=== PATIENT | female | born 1950 | race Caucasian/White ===

== ENCOUNTER → 2016-10-04 | Day surgery (SDC) | payer MEDICARE, BC ==
[2016-10-02 13:11] VITALS: BMI 25.0
[~2016-10-04] MED LIST: GLYCOPYRROLATE 0.2 MG/ML 2 ML VIAL ONE; LACTATED RINGERS 1,000 ML IV SCH; LIDOCAINE 1% 20 ML VIAL (10MG/ML) FOR IV START INTRADERMA PRN; LIDOCAINE 1% INJ 10MG/ML (20 ML MDV) ONE; PROPOFOL 10 MG/ML 20 ML VIAL IV ONE
[2016-10-04 13:21] VITALS: TEMP 98.1
--- NOTE | 2016-10-04 13:41 | P.GSHP ---
History of Present Illness H&P Date: 10/04/16 Chief Complaint: GI bleed, GERD, diverticulitis This is a 58-year-old female who's had some issues with GI bleed. She has a history of GERD and diverticulitis. - Constitutional Constitutional: Reports as per HPI Past Medical History Past Medical History: Atrial Fibrillation, GERD/Reflux, Hyperlipidemia, Hypertension Additional Past Medical History / Comment(s): CHRONIC NECK PAIN History of Any Multi-Drug Resistant Organisms: None Reported Past Surgical History: Heart Catheterization With Stent, Hysterectomy Additional Past Surgical History / Comment(s): RIGHT LUNG BX-NEG. Past Anesthesia/Blood Transfusion Reactions: No Reported Reaction Date of Last Stent Placement:: 2008 Past Psychological History: No Psychological Hx Reported Smoking Status: Former smoker Past Alcohol Use History: Occasional Additional Past Alcohol Use History / Comment(s): STARTED SMOKING AT AGE 14 QUIT 2007 SMOKED 1PPD Past Drug Use History: None Reported - Past Family History Father Family Medical History: Cancer, Myocardial Infarction ([place]) Additional Family Medical History / Comment(s): COLON CA Mother Family Medical History: Myocardial Infarction ([place]) Medications and Allergies Home Medications Medication Instructions Recorded Confirmed Type Aspirin 81 mg PO DAILY 09/15/14 10/02/16 History Ferrous Sulfate [Feosol] 325 mg PO BID 09/15/14 10/02/16 History Metoprolol Tartrate [Lopressor] 25 mg PO BID 09/15/14 10/04/16 History Omeprazole [Omeprazole] 20 mg PO HS 09/15/14 10/04/16 History Diphenoxylate HCl/Atropine 1 tab PO DAILY 10/02/16 10/04/16 History [Lomotil] Estradiol 0.5 mg PO DAILY 10/02/16 10/04/16 History Rosuvastatin Calcium [Crestor] 10 mg PO DAILY 10/02/16 10/04/16 History Allergies Allergy/AdvReac Type Severity Reaction Status Date / Time No Known Allergies Allergy Verified 10/02/16 13:03 Surgical - Exam Vital Signs Temp Pulse Resp BP Pulse Ox 98.1 F 51 L 16 121/65 98 10/04/16 13:19 10/04/16 13:19 10/04/16 13:19 10/04/16 13:19 10/04/16 13:19 - General well developed, no distress - Eyes PERRL - ENT normal pinna - Neck no masses - Respiratory normal expansion - Cardiovascular Rhythm: regular - Abdomen Abdomen: soft, non tender Assessment and Plan Plan: History of GERD and diverticulitis and GI bleed We'll perform EGD and colonoscopy.
--- NOTE | 2016-10-04 14:06 | P.OP ---
Date of Procedure: 10/04/16 Preoperative Diagnosis: GERD GI bleed History of diverticulitis Postoperative Diagnosis: Antral gastritis No evidence of hiatal hernia Severe diverticulosis of sigmoid colon, incomplete colonoscopy Procedure(s) Performed: EGD Colonoscopy Anesthesia: MAC Surgeon: Gui Freed Pathology: other (Antrum) Condition: stable Disposition: PACU Description of Procedure: The patient's placed on the endoscopy table in the lateral position. She received IV sedation. The gastroscope some placed oropharynx and passed into the esophagus and into the stomach. Scope was then placed through the pylorus. The first and second portion of the duodenum appeared normal. Scope was then brought back and the antrum and this appeared mildly inflamed. A biopsies was performed. The scope was then retroflexed the remainder of the stomach appeared normal. The GE junction was at 40 cm. There is no evidence of a hiatal hernia. The distal esophagus appeared normal. The proximal esophagus appeared normal. Scope was withdrawn for patient. Next digital rectal exam was performed which revealed no abnormalities. The scope was then advanced into the rectum and then the sigmoid colon. There is extensive diverticular changes seen in the sigmoid colon. The colon was fixed and tortuous. The scope could not be advanced through the sigmoid colon. This with the scope was withdrawn. The rectum appeared normal. Scope was withdrawn for patient.
[2016-10-04 14:53] VITALS: RESP 18
[2016-10-04 15:05] VITALS: BP 124/69; PULSE 51
--- NOTE | 2016-10-04 16:32 | XR ---
EXAMINATION TYPE: XR KUB DATE OF EXAM: 10/04/2016 4:13 PM COMPARISON: NONE HISTORY: Failed colonoscopy TECHNIQUE: Single supine KUB image of the abdomen is obtained FINDINGS: Given the amount of the air within the large and small bowel barium enema will be attempted in the a. m. No convincing evidence for pneumoperitoneum. No unusual calcifications. The lung bases are clear. The osseous structures are intact. IMPRESSION: 1. Overall nonobstructive bowel gas pattern.
== END ==
LOC: ORWHC2ENDO 12:42
PROVIDERS: ATTEND Surgery
DX: K57.30 Diverticulosis of large intestine without perforation or abscess without bleeding (principal); K29.50 Unspecified chronic gastritis without bleeding; K21.9 Gastro-esophageal reflux disease without esophagitis; Q43.8 Other specified congenital malformations of intestine; I25.10 Atherosclerotic heart disease of native coronary artery without angina pectoris; I10 Essential (primary) hypertension; Z87.891 Personal history of nicotine dependence; E78.5 Hyperlipidemia, unspecified; Z95.5 Presence of coronary angioplasty implant and graft; Z79.82 Long term (current) use of aspirin; Z79.899 Other long term (current) drug therapy; Z79.890 Hormone replacement therapy
CPT/HCPCS: 88305; 88342; 74000; 43239; 45330; J2001; J2704; 45378

== ENCOUNTER → 2016-11-30 | Outpatient (CLI) | payer MEDICARE, BC ==
[2016-11-30 10:23] LABS: CH 28.8; CHCM 34.6; HDW 3.29; HGB 12.6 gm/dL (11.4-16.0); MCH 28.5 pg (25.0-35.0); MCV 83.8 fL (80.0-100.0); RBC 4.42 m/uL (3.80-5.40); RDW 14.2 % (11.5-15.5); WBC 4.6 k/uL (3.8-10.6)
[2016-11-30 10:28] LABS: Potassium 4.4 mmol/L (3.5-5.1)
== END | disposition home or self-care (01) ==
LOC: LABPAT 09:52
PROVIDERS: ATTEND Surgery
DX: Z01.812 Encounter for preprocedural laboratory examination (principal)
CPT/HCPCS: 80051; 85027

== ENCOUNTER 2016-12-07 07:45 | Inpatient (IN) | payer MEDICARE, BC ==
[~2016-12-07 07:45] MED LIST changes: +DEXAMETHASONE SOD PHOSPHATE 10 MG/ML 1 ML VIAL IV ONE; -GLYCOPYRROLATE 0.2 MG/ML 2 ML VIAL ONE; +HEPARIN SODIUM,PORCINE 5,000 UNIT/ML 1 ML VIAL SQ ONE; +HYDROmorphone 1 MG/ML 1 ML SYRINGE IVP PRN; -LIDOCAINE 1% 20 ML VIAL (10MG/ML) FOR IV START INTRADERMA PRN; -LIDOCAINE 1% INJ 10MG/ML (20 ML MDV) ONE; +MIDAZOLAM 2 MG/2 ML VIAL IV PRN; +ONDANSETRON 4 MG/2 ML VIAL IVP ONE; -PROPOFOL 10 MG/ML 20 ML VIAL IV ONE; +ceFAZolin 2 GM in SODIUM CHLORIDE 0.9% 100 ML IVPB ONE; +metroNIDAZOLE-NS PMX 500 MG in SALINE 1 100ML.BAG IVPB ONE
[2016-12-07] MEDS ORDERED: LIDOCAINE 1% 20 ML VIAL (10MG/ML) FOR IV START INTRADERMA ONE (08:54)
--- NOTE | 2016-12-07 10:32 | P.GSHP ---
History of Present Illness H&P Date: 12/07/16 Chief Complaint: Diverticulitis This 58-year-old female for from Dr. Guzman. Patient has history of diverticulitis. She presents today for low anterior section. Patient reversed surgery including colostomy. - Constitutional Constitutional: Reports as per HPI Past Medical History Past Medical History: Atrial Fibrillation, GERD/Reflux, Hyperlipidemia, Hypertension Additional Past Medical History / Comment(s): Diverticulitis,CHRONIC NECK PAIN History of Any Multi-Drug Resistant Organisms: None Reported Past Surgical History: Cholecystectomy, Heart Catheterization With Stent, Hysterectomy Additional Past Surgical History / Comment(s): RIGHT LUNG BX-NEG. Past Anesthesia/Blood Transfusion Reactions: No Reported Reaction Additional Past Anesthesia/Blood Transfusion Reaction / Comment(s): no problems with prior blood transfusion Date of Last Stent Placement:: 2008 Smoking Status: Former smoker - Past Family History Father Family Medical History: Cancer, Myocardial Infarction ([place]) Additional Family Medical History / Comment(s): COLON CA Mother Family Medical History: Myocardial Infarction ([place]) Medications and Allergies Home Medications Medication Instructions Recorded Confirmed Type Aspirin 81 mg PO DAILY 09/15/14 12/07/16 History Ferrous Sulfate [Feosol] 325 mg PO BID 09/15/14 12/07/16 History Metoprolol Tartrate [Lopressor] 25 mg PO BID 09/15/14 12/07/16 History Omeprazole [Omeprazole] 20 mg PO HS 09/15/14 12/07/16 History Diphenoxylate HCl/Atropine 1 tab PO DAILY PRN 10/02/16 12/07/16 History [Lomotil] Estradiol 0.5 mg PO QAM 10/02/16 12/07/16 History Rosuvastatin Calcium [Crestor] 10 mg PO DAILY 10/02/16 12/07/16 History Zolpidem Tartrate 5 mg PO HS PRN 11/29/16 12/07/16 History traMADol HCL [Ultram] 100 mg PO Q6HR PRN 11/29/16 12/07/16 History Allergies Allergy/AdvReac Type Severity Reaction Status Date / Time No Known Allergies Allergy Verified 12/07/16 08:18 Surgical - Exam Vital Signs Temp Pulse Resp BP Pulse Ox 98.1 F 56 L 16 105/64 98 12/07/16 08:11 12/07/16 08:11 12/07/16 08:11 12/07/16 08:11 12/07/16 08:11 - General well developed, no distress - Eyes PERRL - ENT normal pinna - Neck no masses - Respiratory normal expansion - Cardiovascular Rhythm: regular - Abdomen Left lower quadrant pain Abdomen: soft Results - Labs 12/07/16 08:30 Diabetes panel 12/07/16 Range/Units 08:30 Potassium 4.2 (3.5-5.1) mmol/L Pituitary panel 12/07/16 Range/Units 08:30 Potassium 4.2 (3.5-5.1) mmol/L Adrenal panel 12/07/16 Range/Units 08:30 Potassium 4.2 (3.5-5.1) mmol/L Assessment and Plan Plan: Diverticulitis. We'll perform a low anterior resection.
[2016-12-07] MEDS ORDERED: MIDAZOLAM 2 MG/2 ML VIAL ONE (11:06)
[2016-12-07] MEDS ORDERED: GLYCOPYRROLATE 0.2 MG/ML 2 ML VIAL ONE (11:06)
[2016-12-07] MEDS ORDERED: fentaNYL (PF) 50 MCG/ML 2 ML AMP ONE (11:06)
[2016-12-07] MEDS ORDERED: HYDROmorphone (PF) 1 MG/ML ONE (11:06)
[2016-12-07] MEDS ORDERED: SUCCINYLCHOLINE CHLORIDE 100 MG/5 ML SYR IV ONE (11:06)
[2016-12-07] MEDS ORDERED: PROPOFOL 10 MG/ML 20 ML VIAL IV ONE (11:06)
[2016-12-07] MEDS ORDERED: LIDOCAINE 1% INJ 10MG/ML (20 ML MDV) ONE (11:06)
[2016-12-07] MEDS ORDERED: ROCURONIUM BROMIDE 10 MG/ML 10 ML VIAL IV ONE (11:06)
[2016-12-07] MEDS ORDERED: NEOSTIGMINE 1 MG/ML 10 ML VIAL ONE (11:06)
[2016-12-07] MEDS ORDERED: LACTATED RINGERS 1,000 ML IV ONE ×2 (11:42)
[2016-12-07] MEDS ORDERED: NALOXONE 0.4 MG/ML 1 ML VIAL IV PRN (12:12)
[2016-12-07] MEDS ORDERED: HYDROmorphone 1 MG/ML 1 ML SYRINGE IVP PRN (12:25)
[2016-12-07] MEDS ORDERED: BENZOCAINE/MENTHOL LOZENG 1 EACH LOZENGE MUCOUS MEM PRN (12:25)
--- NOTE | 2016-12-07 12:32 | P.OP ---
Date of Procedure: 12/07/16 Preoperative Diagnosis: Diverticulitis Postoperative Diagnosis: Diverticulitis Procedure(s) Performed: Low anterior resection Implants: Anesthesia: ELLIOT Surgeon: Gui Freed Estimated Blood Loss (ml): 50 Pathology: other (Sigmoid colon) Condition: stable Disposition: PACU Indications for Procedure: Operative Findings: Description of Procedure: The patient's placed on the operating table in the supine. She received general anesthesia. She was then placed in dorsolithotomy. Her abdomen pressed prepped and draped usual sterile fashion. The abdomen was entered through a low midline incision. The sigmoid colon was examined.. The sigmoid colon appeared to be mildly inflamed and attached to the lateral pelvic wall. Using blunt and sharp dissection with cautery; was mobilized. The; was then transected proximally with the linear cutter stapler. Using the LigaSure device the mesentery was divided. The rectum was then transected with the contour stapler. Next the pursestring device applied to the proximal colon and then the 25 mm EEA anvil was placed in the colon and the pursestring was secured. The EEA stapler was then placed patient anus and then was positioned near the staple line. The stapler was opened and the spike was driven through the anterior colon wall and then the anvil was attached to the stapler and the stapler was then closed and then the stapler was fired. Stapler was withdrawn for patient. 2 intact tissue rings removed the stapler. The rectum was insufflated with air via a rigid sigmoidoscope. There is no extravasation of air at the anastomosis. The abdomen was irrigated. There is no bleeding seen. The fascia was closed with looped #1 PDS suture. The skin was closed with sakina. She top she will was sent to recovery in stable condition.
[2016-12-07] MEDS: BUPIVACAINE (PF) 0.5% 31.3 ML, HYDROMORPHONE (PF) 5 MG in SODIUM CHLORIDE 0.9% 218 ML EPIDURAL PRN (13:04)
[2016-12-07] MEDS: D5-0.45% NACL WITH KCL 20MEQ/L 1,000 ML IV SCH ×2 (15:19→20:46)
[2016-12-07 15:40] VITALS: BMI 23.5
[2016-12-07 15:48] LABS: Basophils % (A) 0 %; CHCM 33.9; Eosinophils % (A) 0 %; HCT 35.3 % (34.0-46.0); HDW 3.52; HGB 12.2 gm/dL (11.4-16.0); Luc # (Auto) 0.06; Luc % (Auto) 1; Lymphocytes # (A) 0.6 k/uL (1.0-4.8); Lymphocytes % (A) 10 %; MCH 28.8 pg (25.0-35.0); MCHC 34.7 g/dL (31.0-37.0); Mean Platelet Volume 7.1; Monocytes # (A) 0.1 k/uL (0-1.0); Monocytes % (A) 2 %; Neutrophils # (A) 5.4 k/uL (1.3-7.7); Neutrophils % (A) 87 %; Poikilocytosis Slight; RBC 4.25 m/uL (3.80-5.40); RDW 14.2 % (11.5-15.5); WBC 6.3 k/uL (3.8-10.6); WBC (Perox) 6.77
[2016-12-07 15:54] LABS: Anion Gap 12 mmol/L; Blood Urea Nitrogen 13 mg/dL (7-17); Calcium 9.7 mg/dL (8.4-10.2); Carbon Dioxide 24 mmol/L (22-30); Chloride 107 mmol/L (98-107); Glucose 132 mg/dL (74-99); Non-African American GFR(MDRD) 58 (>60 ml/min/1.73 sqM); Potassium 4.3 mmol/L (3.5-5.1); Sodium 143 mmol/L (137-145)
[2016-12-07] MEDS: ONDANSETRON 4 MG/2 ML VIAL IVP PRN (20:45)
[2016-12-07] MEDS: FAMOTIDINE 20 MG/2 ML VIAL IV SCH (20:46)
[2016-12-07] MEDS ORDERED: ZOLPIDEM 5 MG TAB PO PRN (21:00)
[2016-12-07] MEDS: METOCLOPRAMIDE 5 MG/ML 2 ML VIAL IVP PRN (23:36)
[2016-12-08] MEDS: D5-0.45% NACL WITH KCL 20MEQ/L 1,000 ML IV SCH ×2 (06:03→07:59)
[2016-12-08] MEDS: ONDANSETRON 4 MG/2 ML VIAL IVP PRN (07:58)
[2016-12-08] MEDS: ALVIMOPAN 12 MG CAPSULE PO SCH ×2 (07:59→20:06)
[2016-12-08] MEDS: FAMOTIDINE 20 MG/2 ML VIAL IV SCH ×2 (07:59→20:06)
[2016-12-08] MEDS: METOPROLOL TARTRATE 25 MG TAB PO SCH ×2 (07:59→20:11)
[2016-12-08] MEDS: ATORVASTATIN 20 MG TAB PO SCH (07:59)
--- NOTE | 2016-12-08 09:07 | P.PN ---
Progress Note - Text 0730 Anesthesia POD 1. Status Post oh anterior resection under general endotracheal anesthesia with an epidrual catheter placed at L3 4 for post surgical pain releif. VAS (0, 3) with Bupivicaine 0.0625 % and Dilaudid 20 mcg / cc running at 5 cc / hr. Lower extremity strength (4/4). No sedation. Site looks OK. Epidural rate was higher yesterday producing some left lower extremity weakness but was backed off to 5 mL per hour to good effect in that the patient has full strength in that leg. The epidural pump is alarming intermittently indicating occlusion however the dressing is dry and intact and the epidural is functioning well in terms of pain relief. It is possible that tomorrow dressing change may be required at which point catheter kinking can be investigated as a cause for the intermittent occlusion alarms.
[2016-12-08] MEDS: METOCLOPRAMIDE 5 MG/ML 2 ML VIAL IVP PRN (13:19)
--- NOTE | 2016-12-08 14:30 | P.PN ---
Subjective Principal diagnosis: Diverticulitis The patient's postoperative day 1 from low anterior section. Patient is doing quite well. She's had minimal complaints of pain. She had her epidural catheter decreased due to some numbness in her legs. Objective - Vital Signs Vital signs: Vital Signs Temp 97.9 F 12/08/16 07:40 Pulse 63 12/08/16 08:00 Resp 16 12/08/16 08:00 BP 105/55 12/08/16 07:40 Pulse Ox 94 L 12/08/16 07:40 Intake & Output 12/07/16 12/08/16 12/08/16 18:59 06:59 18:59 Intake Total 2020.5 1500 Output Total 400 Balance 1620.5 1500 Weight 68.039 kg Intake: IV 2020.5 Intake, IV Titration 1500 Amount D5-0.45% NaCl with KCl 1500 20Meq/l 1,000 ml @ 125 mls/hr IV .Q8H LAURA Rx#: [id number] Output: Urine 350 Estimated Blood Loss 50 Other: Voiding Method Indwelling Catheter Indwelling Catheter Indwelling Catheter # Voids 0 - Constitutional General appearance: Present: average body habitus - Gastrointestinal Gastrointestinal Comment(s): Abdomen soft. Incision site is clean dry tach. - Labs CBC & Chem 7: 12/07/16 15:08 12/07/16 15:08 Labs: Abnormal Lab Results - Last 24 Hours (Table) 12/07/16 12/07/16 Range/Units 15:08 15:08 Lymphocytes # 0.6 L (1.0-4.8) k/uL Glucose 132 H (74-99) mg/dL Assessment and Plan Plan: Status post low anterior resection for diverticulitis. Patient is doing quite well. She'll remain on clear liquid diet. Hopefully she'll be discharged home the next 2-3 days.
--- NOTE | 2016-12-08 15:50 | CONS ---
REASON FOR CONSULTATION: Advice regarding atrial fibrillation and multiple medical issues, requested by Dr. Freed. HISTORY OF PRESENT ILLNESS: This 66-year-old woman with a past medical history of atrial fibrillation, hypertension, hyperlipidemia, history of diverticulosis , being followed by Dr. Dima Guzman in the outpatient setting, underwent low anterior resection for diverticulitis. No chest pain. No palpitation. No fever. No headache, loss of consciousness, seizures. PAST MEDICAL HISTORY: 1. Atrial fibrillation. 2. GERD. 3. Hypertension. 4. Hyperlipidemia. MEDICATIONS PRIOR TO ADMISSION: 1. Ultram 100 mg q.6 p.r.n. 2. Ambien 5 mg at bedtime p.r.n. 3. Crestor 10 mg daily. 4. Omeprazole 20 mg daily. 5. Lopressor 25 mg b.i.d. 6. Iron sulfate 325 mg b.i.d. 7. Estradiol 0.5 mg each morning. 8. Lomotil 1 tablet daily p.r.n. 9. Aspirin 81 mg daily. ALLERGIES: NONE. FAMILY HISTORY: History of cancer, myocardial infarction, colon cancer. SOCIAL HISTORY: Previous history of smoking. No current smoking or alcohol intake. REVIEW OF SYSTEMS: ENT: No diminished hearing. No diminished vision. CARDIOVASCULAR SYSTEM: No angina, palpitations. RESPIRATORY SYSTEM: No cough, hemoptysis. GI: No nausea, vomiting. : No dysuria, retention. NERVOUS SYSTEM: No numbness, weakness. ALLERGY/IMMUNOLOGY: No asthma, hayfever. MUSCULOSKELETAL: As mentioned earlier. HEMATOLOGY/ONCOLOGY: No history of anemia. ENDOCRINE: No history of diabetes or hypothyroidism. CONSTITUTIONAL: As mentioned earlier. DERMATOLOGIC: Negative. RHEUMATOLOGIC: Negative. PSYCHIATRY: As mentioned earlier. PHYSICAL EXAMINATION: Patient is alert and oriented x3. Pulse is 64, blood pressure 119/56, respirations 15, temperature 97.8, pulse ox 98% on 3 L. HEENT: Conjunctivae normal. Oral mucosa moist. NECK: No jugular venous congestion. No carotid bruit. No lymph node enlargement. CARDIAC: S1, S2 muffled. No S3. No S4. Ejection systolic murmur. RESPIRATORY: Breath sounds diminished at the bases. No rhonchi. No crackles. ABDOMEN: Soft. Non-tender. Status post surgery. LEGS: No edema. No swelling. NERVOUS SYSTEM: No focal deficit. LABS: CBC, BMP noted. ASSESSMENT: 1. Status post low anterior resection for diverticulitis. 2. Atrial fibrillation. 3. Gastroesophageal reflux disease. 4. Hypertension. 5. Hyperlipidemia. 6. History of cholecystectomy. 7. History of coronary artery disease, stent. RECOMMENDATIONS AND DISCUSSION: In this 66-year-old woman who presented with multiple complex medical issues, at this time I recommend to continue current medications, continue with symptomatic treatment. Otherwise, DVT prophylaxis. Resume the home medications when the patient is p.o. Will follow the patient closely with you. Patient may be asked to follow up with Dr. Guzman after discharge. Thank you, Dr. Freed, for letting us participate in the care of this patient. KIMBERLY
[2016-12-09] MEDS: ATORVASTATIN 20 MG TAB PO SCH (08:40)
[2016-12-09] MEDS: D5-0.45% NACL WITH KCL 20MEQ/L 1,000 ML IV SCH ×3 (08:40→13:42)
[2016-12-09] MEDS: ALVIMOPAN 12 MG CAPSULE PO SCH ×2 (08:40→22:00)
[2016-12-09] MEDS: FAMOTIDINE 20 MG/2 ML VIAL IV SCH (08:41)
[2016-12-09] MEDS: BUPIVACAINE (PF) 0.5% 31.3 ML, HYDROMORPHONE (PF) 5 MG in SODIUM CHLORIDE 0.9% 218 ML EPIDURAL PRN (08:48)
[2016-12-09] MEDS: METOPROLOL TARTRATE 25 MG TAB PO SCH ×2 (08:58→22:00)
--- NOTE | 2016-12-09 11:37 | P.PN ---
Subjective Principal diagnosis: Diverticulitis Patient doing well today. Nausea is improved. Tolerating clear liquids. No significant bowel function. She is ambulating nicely. Objective - Vital Signs Vital signs: Vital Signs Temp 98.4 F 12/09/16 07:40 Pulse 73 12/09/16 07:40 Resp 24 12/09/16 07:40 BP 125/64 12/09/16 07:40 Pulse Ox 95 12/09/16 07:55 Intake & Output 12/08/16 12/09/16 12/09/16 18:59 06:59 18:59 Intake Total 1000 1140 188.917 Output Total 400 Balance 600 1140 188.917 Intake: Intake, IV Titration 1000 1000 188.917 Amount Bupivacaine (Pf) 0.5% 31. 188.917 3 ml Hydromorphone (Pf) 5 mg In Sodium Chloride 0. 9% 218 ml @ Per Protocol EPIDURAL .Q0M PRN Rx#: [id number] D5-0.45% NaCl with KCl 1000 1000 20Meq/l 1,000 ml @ 125 mls/hr IV .Q8H LAURA Rx#: [id number] Oral 140 Output: Urine 400 Other: Voiding Method Indwelling Catheter Indwelling Catheter # Voids 0 - Exam Abdomen: Soft, nondistended, incision with small amount of serous drainage, minimal tenderness - Labs CBC & Chem 7: 12/07/16 15:08 12/07/16 15:08 Assessment and Plan (1) Diverticulitis Narrative/Plan: Increase diet to full. Continue ambulation. Remove epidural tomorrow. Check labs. Status: Acute
[2016-12-09] MEDS: ONDANSETRON 4 MG/2 ML VIAL IVP PRN (12:36)
--- NOTE | 2016-12-09 18:39 | P.PN ---
Progress Note - Text 12/09 8397 66-year-old female status post low anterior resection by Dr. Freed. Patient evaluated for pain control epidural solution running at 5 mL an hour. Patient has a pain score of 0, has been ambulating throughout the day, with no motor or sensory deficits. Plan to continue epidural infusion
[2016-12-09] MEDS: FAMOTIDINE 20 MG TAB PO SCH (22:00)
[2016-12-10 07:32] LABS: Basophils % (A) 1 %; CH 28.1; CHCM 34.3; Eosinophils # (A) 0.2 k/uL (0-0.7); Eosinophils % (A) 4 %; HCT 30.3 % (34.0-46.0); HDW 3.56; HGB 10.5 gm/dL (11.4-16.0); Luc # (Auto) 0.06; Luc % (Auto) 2; Lymphocytes # (A) 0.8 k/uL (1.0-4.8); Lymphocytes % (A) 22 %; MCH 28.4 pg (25.0-35.0); MCHC 34.6 g/dL (31.0-37.0); Mean Platelet Volume 6.9; Monocytes # (A) 0.2 k/uL (0-1.0); Monocytes % (A) 6 %; Neutrophils # (A) 2.4 k/uL (1.3-7.7); Neutrophils % (A) 66 %; Poikilocytosis Slight; RBC 3.69 m/uL (3.80-5.40); RDW 14.1 % (11.5-15.5); WBC 3.7 k/uL (3.8-10.6); WBC (Perox) 3.99
--- NOTE | 2016-12-10 07:46 | PN ---
DATE OF SERVICE: 12/08/2016 This 66-year-old woman who was admitted after low anterior resection, has improved significantly. No chest pain, no palpitations. No fever. On exam, alert and oriented x3. Pulse 63, blood pressure 105/55, respirations 16 , temperature 97.9, pulse ox 94% on room air. HEENT: Conjunctivae normal. NECK: No jugular venous distention. CARDIOVASCULAR: S1, S2. RESPIRATORY: Breath sounds are diminished at the bases. No rhonchi, no crackles. . ABDOMEN: Soft, status post surgery. LEGS: No edema. NERVOUS SYSTEM: No focal deficits. LABS: CBC and CMP within normal limits. ASSESSMENT: 1. Status post low anterior resection for diverticulitis. 2. Atrial fibrillation. 3. Hypertension. 4. Hyperlipidemia. RECOMMENDATIONS AND DISCUSSIONS: I recommend to continue the current medications , continue monitoring and symptomatic treatment. Otherwise closely following with Surgery. DVT prophylaxis. Further recommendations to follow. MTDD
[2016-12-10] MEDS: METOPROLOL TARTRATE 25 MG TAB PO SCH ×2 (07:51→20:04)
[2016-12-10] MEDS: ATORVASTATIN 20 MG TAB PO SCH (07:52)
[2016-12-10] MEDS: FAMOTIDINE 20 MG TAB PO SCH ×2 (07:52→20:04)
[2016-12-10] MEDS: ALVIMOPAN 12 MG CAPSULE PO SCH ×2 (07:52→20:03)
[2016-12-10 08:01] LABS: Anion Gap 6 mmol/L; Blood Urea Nitrogen 5 mg/dL (7-17); Carbon Dioxide 23 mmol/L (22-30); Chloride 107 mmol/L (98-107); Glucose 103 mg/dL (74-99); Non-African American GFR(MDRD) >60 (>60 ml/min/1.73 sqM); Potassium 4.3 mmol/L (3.5-5.1); Sodium 136 mmol/L (137-145)
[2016-12-10] MEDS: D5-0.45% NACL WITH KCL 20MEQ/L 1,000 ML IV SCH ×4 (10:15→22:39)
--- NOTE | 2016-12-10 11:07 | P.PN ---
Subjective Principal diagnosis: Diverticulitis Patient doing well today. Small amount of flatus. No nausea or vomiting. Tolerating small amounts of soft foods. Objective - Vital Signs Vital signs: Vital Signs Temp 98.0 F 12/10/16 08:35 Pulse 65 12/10/16 08:35 Resp 20 12/10/16 08:35 BP 104/51 12/10/16 08:35 Pulse Ox 95 12/10/16 08:55 Intake & Output 12/09/16 12/10/16 12/10/16 18:59 06:59 18:59 Intake Total 879.136 8566 Output Total 1200 Balance -221.739 9337 Intake: Intake, IV Titration 418.735 8124 Amount Bupivacaine (Pf) 0.5% 31. 188.917 3 ml Hydromorphone (Pf) 5 mg In Sodium Chloride 0. 9% 218 ml @ Per Protocol EPIDURAL .Q0M PRN Rx#: [id number] D5-0.45% NaCl with KCl 750 20Meq/l 1,000 ml @ 125 mls/hr IV .Q8H LAURA Rx#: [id number] Lactated Ringers 1,000 ml 500 As IV .STK-MED ONE Rx#: [id number] Oral 700 Output: Urine 1200 Other: Voiding Method Indwelling Catheter Indwelling Catheter Indwelling Catheter - Exam Abdomen: Soft, nondistended, minimal tenderness, incision clean and dry - Labs CBC & Chem 7: 12/10/16 06:47 12/10/16 06:47 Labs: Abnormal Lab Results - Last 24 Hours (Table) 12/10/16 12/10/16 Range/Units 06:47 06:47 WBC 3.7 L (3.8-10.6) k/uL RBC 3.69 L (3.80-5.40) m/uL Hgb 10.5 L (11.4-16.0) gm/dL Hct 30.3 L (34.0-46.0) % Lymphocytes # 0.8 L (1.0-4.8) k/uL Sodium 136 L (137-145) mmol/L BUN 5 L (7-17) mg/dL Glucose 103 H (74-99) mg/dL Assessment and Plan (1) Diverticulitis Narrative/Plan: Gradually increase diet. Remove epidural. Increase ambulation. Status: Acute
--- NOTE | 2016-12-10 13:56 | P.PN ---
Progress Note - Text 12/10 1235 66-year-old female status post low anterior resection by Dr. tolentino. Epidural solution running at 5 mL an hour, VAS of 0, no motor or sensory deficits. Plan to DC epidural nurse informed
[2016-12-10] MEDS: HYDROcodone/APAP 5-325MG 1 EACH TAB PO PRN ×2 (16:30→20:37)
[2016-12-11] MEDS ORDERED: HYDROcodone/APAP 5-325MG 1 EACH TAB ONE (00:47)
[2016-12-11] MEDS: HYDROcodone/APAP 5-325MG 1 EACH TAB PO PRN ×4 (04:34→17:03)
[2016-12-11] MEDS: D5-0.45% NACL WITH KCL 20MEQ/L 1,000 ML IV SCH ×2 (06:08→15:03)
[2016-12-11 07:45] VITALS: RESP 18
[2016-12-11] MEDS: FAMOTIDINE 20 MG TAB PO SCH (08:49)
[2016-12-11] MEDS: ATORVASTATIN 20 MG TAB PO SCH (08:49)
[2016-12-11] MEDS: METOPROLOL TARTRATE 25 MG TAB PO SCH (08:49)
[2016-12-11] MEDS: ALVIMOPAN 12 MG CAPSULE PO SCH (08:53)
--- NOTE | 2016-12-11 10:57 | PN ---
DATE OF SERVICE: 12/09/2016 This 66-year-old woman who was admitted after low anterior resection is being closely monitored. No chest pain. No palpitations. No fever. On exam, alert and oriented x3. Pulse 73, blood pressure 120/65, respirations 24 , temperature 98.4, pulse ox 90% on 2-L. HEENT: Conjunctivae normal. NECK: No jugular venous distention. CARDIOVASCULAR: S1, S2. RESPIRATORY: Breath sounds diminished in the bases. No rhonchi, no crackles. ABDOMEN: Soft, no mass palpable. LEGS: No edema. NERVOUS SYSTEM: No focal deficits. LABS: Glucose 130, CBC within normal limits. ASSESSMENT: 1. Status post low anterior resection for diverticulitis. 2. Atrial fibrillation. 3. Gastroesophageal reflux disease. 4. Hypertension. 5. Hyperlipidemia. 6. History of cholecystectomy. 7. History of coronary artery disease, stent. RECOMMENDATIONS AND DISCUSSION: I recommend to continue the current medications , continue with monitoring and symptomatic treatment. Otherwise at this time will monitor the patient closely. Otherwise I would recommend incentive spirometry, DVT prophylaxis. Further recommendations to follow. Monitor blood sugar closely. MTDD
[2016-12-11 16:49] VITALS: BP 121/58; PULSE 58; TEMP 98.3
--- NOTE | 2016-12-11 17:25 | P.DS ---
Providers Date of admission: 12/07/16 08:00 Expected date of discharge: 12/11/16 Attending physician: Gui Freed Consults: 12/07/16 12:25 Consult Physician Routine Consulting Provider: Dima Guzman Reason/Comments: Medical management Do you want consulting provider notified?: Yes Primary care physician: Dima Guzman [facility] Course: This is a 58-year-old female underwent low anterior section. Patient did well postoperatively. Discussed her for details. Procedures: Low anterior resection Patient Condition at Discharge: Good Plan - Discharge Summary New Discharge Prescriptions: New Docusate [Colace] 100 mg PO DAILY #20 capsule HYDROcodone/APAP 7.5-325MG [[place] 7.5] 1 each PO Q4H PRN #60 tab PRN Reason: Pain No Action Omeprazole [Omeprazole] 20 mg PO HS Aspirin 81 mg PO DAILY Ferrous Sulfate [Feosol] 325 mg PO BID Diphenoxylate HCl/Atropine [Lomotil] 1 tab PO DAILY PRN PRN Reason: ls stools Rosuvastatin Calcium [Crestor] 10 mg PO DAILY Estradiol 0.5 mg PO QAM traMADol HCL [Ultram] 100 mg PO Q6HR PRN PRN Reason: Pain Zolpidem Tartrate 5 mg PO HS PRN PRN Reason: sleep Metoprolol Tartrate [Lopressor] 25 mg PO BID Discharge Medication List Aspirin 81 mg PO DAILY 09/15/14 [History] Ferrous Sulfate [Feosol] 325 mg PO BID 09/15/14 [History] Omeprazole [Omeprazole] 20 mg PO HS 09/15/14 [History] Diphenoxylate HCl/Atropine [Lomotil] 1 tab PO DAILY PRN 10/02/16 [History] Estradiol 0.5 mg PO QAM 10/02/16 [History] Rosuvastatin Calcium [Crestor] 10 mg PO DAILY 10/02/16 [History] Zolpidem Tartrate 5 mg PO HS PRN 11/29/16 [History] traMADol HCL [Ultram] 100 mg PO Q6HR PRN 11/29/16 [History] Metoprolol Tartrate [Lopressor] 25 mg PO BID 12/07/16 [History] Docusate [Colace] 100 mg PO DAILY #20 capsule 12/11/16 [Rx] HYDROcodone/APAP 7.5-325MG [[place] 7.5] 1 each PO Q4H PRN #60 tab 12/11/16 [Rx] Follow up Appointment(s)/Referral(s): Gui Freed MD [STAFF PHYSICIAN] - 12/26/16 2:15 pm Patient Instructions/Handouts: Hydrocodone/Acetaminophen (By mouth), Laxative, Stool Softeners (By mouth), Bowel Resection (DC)
--- NOTE | 2016-12-11 20:07 | PN ---
DATE OF SERVICE: 12/10/2016 This 66-year-old woman who was admitted after low anterior resection for diverticulitis is being closely monitored. No chest pain. No palpitations. No fever. On exam, alert and oriented x3. Pulse 70, blood pressure 144/70, respiration 16, temperature 97.7, pulse ox 93% on room air. HEENT: Conjunctivae pale. Oral mucosa moist. NECK: No jugular venous distention. No carotid bruit. No lymph node enlargement. CARDIOVASCULAR: S1, S2 muffled. RESPIRATORY: Breath sounds diminished at the bases. No rhonchi. No crackles. ABDOMEN: Soft, non-tender. No mass palpable. LEGS: No edema. No swelling. NERVOUS SYSTEM: No focal deficit. LABS: WBC 3.6, hemoglobin 10.5. ASSESSMENT: 1. Status post low anterior resection for diverticulitis. 2. Atrial fibrillation. 3. Gastroesophageal reflux disease. 4. Hypertension, essential. 5. Hyperlipidemia. 6. History of cholecystomy. 7. History of coronary artery disease, stent. RECOMMENDATIONS AND DISCUSSION: At this time I recommend to continue current medications, continue symptomatic treatment. Otherwise, at this time incentive spirometry, DVT prophylaxis. Further recommendations to follow. MTDD
== END 2016-12-11 17:30 | disposition home or self-care (01) | DRG 331 ==
LOC: 2ORWHC 08:00 → 5MS5E 12:35
PROVIDERS: ADMIT Surgery; ATTEND Surgery
PROC: 0DBN0ZZ Excision of Sigmoid Colon, Open Approach (ICD-10-PCS; principal; 2016-12-07 10:55)
DX: K57.32 Diverticulitis of large intestine without perforation or abscess without bleeding (principal); I48.91 Unspecified atrial fibrillation; I10 Essential (primary) hypertension; E78.5 Hyperlipidemia, unspecified; I25.10 Atherosclerotic heart disease of native coronary artery without angina pectoris; K21.9 Gastro-esophageal reflux disease without esophagitis; Z79.82 Long term (current) use of aspirin; Z79.899 Other long term (current) drug therapy; Z80.0 Family history of malignant neoplasm of digestive organs; Z82.49 Family history of ischemic heart disease and other diseases of the circulatory system; Z87.891 Personal history of nicotine dependence; Z95.5 Presence of coronary angioplasty implant and graft
CPT/HCPCS: 80048; 84132; 85025; 86850; 86900; 86901; 88307; 94760

== ENCOUNTER → 2017-01-31 | Outpatient (CLI) | payer MEDICARE, BC ==
--- NOTE | 2017-02-01 10:31 | MM ---
Reason for exam: screening (asymptomatic). Last mammogram was performed 1 year and 2 months ago. History: Patient is postmenopausal and is nulliparous. Benign excisional biopsy, 2006. Physical Findings: A clinical breast exam by your physician is recommended on an annual basis and results should be correlated with mammographic findings. MG Screening Mammo w CAD Bilateral CC and MLO view(s) were taken. Prior study comparison: December 08, 2015, bilateral MG 3d screening mammo w/cad. November 30, 2014, bilateral MG screening mammo w CAD. The breast tissue is extremely dense which could obscure a lesion on mammography. No significant changes when compared with prior studies. ASSESSMENT: Benign, BI-RAD 2 RECOMMENDATION: Routine screening mammogram of both breasts in 1 year.
== END | disposition home or self-care (01) ==
LOC: RADMAMWWP 07:28
PROVIDERS: ATTEND Family Medicine
DX: Z12.31 Encounter for screening mammogram for malignant neoplasm of breast (principal)

== ENCOUNTER → 2017-08-30 | Outpatient (CLI) | payer MEDICARE, BC ==
[2017-08-30 10:56] LABS: ALT 14 U/L (9-52); AST 17 U/L (14-36); Cholesterol 171 mg/dL (<200); HDL Cholesterol 54 mg/dL (40-60); LDL Cholesterol,Calculated 74 mg/dL (0-99); Triglycerides 214 mg/dL (<150)
== END | disposition home or self-care (01) ==
LOC: LABWHC1 09:57
PROVIDERS: ATTEND Nurse Practitioner Adult Health
DX: E78.2 Mixed hyperlipidemia (principal)
CPT/HCPCS: 36415; 80061; 84450; 84460

== ENCOUNTER → 2019-01-24 | Outpatient (CLI) | payer MEDICARE, BC ==
[2019-01-24 17:20] LABS: Chol/HDL Ratio 2.96; LDL Cholesterol,Calculated 80.2 mg/dL (0.0-131.0); VLDL Calculation 25.8 mg/dL (5.00-40.00)
== END | disposition home or self-care (01) ==
LOC: LABWHC1 08:12
PROVIDERS: ATTEND Internal Medicine Interventional Cardiology
DX: E78.2 Mixed hyperlipidemia (principal)
CPT/HCPCS: 36415; 80061; 84450; 84460

== ENCOUNTER → 2019-02-17 | Outpatient (CLI) | payer MEDICARE, BC ==
--- NOTE | 2019-02-17 10:57 | MM ---
Reason for exam: screening (asymptomatic). Last mammogram was performed 1 year and 1 month ago. History: Patient is postmenopausal and is nulliparous. Benign excisional biopsy, 2006. Physical Findings: A clinical breast exam by your physician is recommended on an annual basis and results should be correlated with mammographic findings. MG 3D Screening Mammo W/Cad Bilateral CC and MLO view(s) were taken. Prior study comparison: February 01, 2018, bilateral MG 3d screening mammo w/cad. January 31, 2017, bilateral MG screening mammo w CAD. The breast tissue is extremely dense which could obscure a lesion on mammography. There are benign appearing round dystrophic calcifications bilaterally. There is no discrete abnormality. ASSESSMENT: Benign, BI-RAD 2 RECOMMENDATION: Routine screening mammogram of both breasts in 1 year.
== END | disposition home or self-care (01) ==
LOC: RADMAMWWP 07:06
PROVIDERS: ATTEND Family Medicine
DX: Z12.31 Encounter for screening mammogram for malignant neoplasm of breast (principal)
CPT/HCPCS: 77063; 77067

== ENCOUNTER → 2019-02-20 | Outpatient (CLI) | payer MEDICARE, BC ==
--- NOTE | 2019-02-20 08:22 | CT ---
EXAMINATION TYPE: CT chest wo con DATE OF EXAM: 02/20/2019 COMPARISON: 03/11/2013 HISTORY: 68-year-old female Coughing up blood TECHNIQUE: Contiguous axial scanning of the chest without IV contrast. Coronal and sagittal reconstru ctions performed. CT DLP: 325.4 mGycm Automated exposure control for dose reduction was used. FINDINGS: Heart overall normal size but there is mild left atrial dilatation. 3 vessel coronary vessel calcific ations are present. No pericardial effusion. Aorta normal caliber with a mild scattered prostatic calcifications and variant direct takeoff of the left vertebral artery directly from the aortic arch. Scattered prominent mediastinal lymph nodes measure up to 8 mm paratracheal, right tracheobronchial a ngle, and AP window levels, increased in size from 2013. A mildly enlarged 1.8 cm subcarinal lymph no de is also increased in size. Lungs show diffuse patchy and confluent groundglass and mosaic attenuation. No honeycombing or thicke brady of the bronchovascular bundles. No dominant cystic change or bronchiectasis. No violeta consolidation or pleural effusion. There is a 7 mm right middle lobe pulmonary nodule, 4 mm inferior lingular pulmonary nodule, 4 mm lateral left midlung pulmonary nodule, And a 6 mm anterior left upper lobe pulmonary nodule. These are new from prior. Visualized upper abdomen shows stable 1 cm right adrenal adenoma. Bones: Mild degenerative disc disease lower thoracic spine. IMPRESSION: 1. ONGOING PATCHY AND CONFLUENT GROUNDGLASS THROUGHOUT THE BILATERAL LUNGS. GROUNDGLASS MAY BE SLIGHT LY WORSENED FROM 2012. SOME DIFFERENTIAL CONSIDERATIONS INCLUDE NSIP, HYPERSENSITIVITY PNEUMONITIS, A ND ATYPICAL INFECTIONS. 2. NONENLARGED MEDIASTINAL LYMPH NODES MEASURING UP TO 8 MM ARE INCREASED IN SIZE FROM 2012 AND MAY B E REACTIVE. HOWEVER, THERE IS NOW A MILDLY ENLARGED 1.8 CM SUBCARINAL LYMPH NODE. 3-6 MONTH FOLLOW-UP RECOMMENDED TO ENSURE STABILITY. 3. APPROXIMATELY 4 NEW SCATTERED PULMONARY NODULES MEASURING UP TO 7 MM. THESE SHOULD ALSO BE REASSES SED AT THE PATIENT'S FOLLOW-UP. 4. STABLE 1 CM RIGHT ADRENAL ADENOMA. 5. THREE-VESSEL CAD.
[2019-02-21 11:12] LABS: ANA Pattern Homogeneous
[2019-02-21 15:46] LABS: Alt. alternata IgE Class CLASS 0; Alternaria alternata IgE <0.35 kU/L (<0.35); Asperg. fumagatus IgE <0.35 kU/L (<0.35); Asperg. fumagatus IgE Class CLASS 0; Bermuda Grass IgE <0.35 kU/L (<0.35); Birch(Com.Silvr) IgE <0.35 kU/L (<0.35); Birch(Com.Silvr) IgE Class CLASS 0; Cat Epith & Dander IgE <0.35 kU/L (<0.35); Cat Epith & Dander IgE Class CLASS 0; Clad herbarum IgE <0.35 kU/L (<0.35); Clad herbarum IgE Class CLASS 0; Cockroach IgE <0.35 kU/L (<0.35); Cottonwood IgE <0.35 kU/L (<0.35); Dermato. Pteronyssinus Class CLASS 0; Dermato. Pteronyssinus IgE <0.35 kU/L (<0.35); Dermato. farinae IgE <0.35 kU/L (<0.35); Dermato. farinae IgE Class CLASS 0; Dog Dander IgE <0.35 kU/L (<0.35); Elm IgE <0.35 kU/L (<0.35); Maple (Box Elder) IgE <0.35 kU/L (<0.35); Maple (Box Elder) IgE Class CLASS 0; Mountain Cedar IgE <0.35 kU/L (<0.35); Mountain Cedar IgE Class CLASS 0; Mouse Urine IgE Class CLASS 0; Nettle IgE <0.35 kU/L (<0.35); Nettle IgE Class CLASS 0; Oak IgE <0.35 kU/L (<0.35); Penicillium notatum IgE Class CLASS 0; Rough Marshelder IgE <0.35 kU/L (<0.35); Rough Marshelder IgE Class CLASS 0; Timothy Grass IgE <0.35 kU/L (<0.35); White Ash IgE Class CLASS 0
== END | disposition home or self-care (01) ==
LOC: RADCTMAIN 07:23
PROVIDERS: ATTEND Internal Medicine Pulmonary Disease
DX: R91.1 Solitary pulmonary nodule (principal); I25.10 Atherosclerotic heart disease of native coronary artery without angina pectoris; R59.0 Localized enlarged lymph nodes; G47.33 Obstructive sleep apnea (adult) (pediatric); R76.8 Other specified abnormal immunological findings in serum
CPT/HCPCS: 36415; 71250; 82103; 82785; 85652; 86001; 86003; 86038; 86039; 86606; 86609

== ENCOUNTER → 2019-06-25 | Outpatient (CLI) | payer MEDICARE | END | disposition home or self-care (01) | LOC: LABWHC1 15:47 | PROVIDERS: ATTEND Otolaryngology | DX: Z01.818 Encounter for other preprocedural examination (principal); I51.9 Heart disease, unspecified | CPT/HCPCS: 36415; 93005 ==

== ENCOUNTER → 2020-02-19 | Outpatient (CLI) | payer MEDICARE ==
--- NOTE | 2020-02-23 09:09 | MM ---
Reason for exam: screening (asymptomatic). Last mammogram was performed 1 year ago. History: Patient is postmenopausal and is nulliparous. Benign excisional biopsy, 2006. Taking estrogen beginning at age 64. Physical Findings: A clinical breast exam by your physician is recommended on an annual basis and results should be correlated with mammographic findings. MG 3D Screening Mammo W/Cad Bilateral CC and MLO view(s) were taken. Prior study comparison: February 17, 2019, bilateral MG 3d screening mammo w/cad. February 01, 2018, bilateral MG 3d screening mammo w/cad. The breast tissue is extremely dense which could obscure a lesion on mammography. Finding: There are typically benign round, diffuse/scattered course calcifications in both breasts. No significant changes in finding since February 17, 2019 and February 01, 2018. ASSESSMENT: Benign, BI-RAD 2 RECOMMENDATION: Routine screening mammogram of both breasts in 1 year.
== END | disposition home or self-care (01) ==
LOC: RADMAMWWP 09:05
PROVIDERS: ATTEND Family Medicine
DX: Z12.31 Encounter for screening mammogram for malignant neoplasm of breast (principal)
CPT/HCPCS: 77063; 77067

== ENCOUNTER → 2020-03-18 | Outpatient (CLI) | payer MEDICARE ==
[2020-03-18 09:12] LABS: HCT 44.1 % (34.0-46.0); HGB 14.1 gm/dL (11.4-16.0); MCH 27.8 pg (25.0-35.0); MCHC 31.9 g/dL (31.0-37.0); MCV 87.3 fL (80.0-100.0); Mean Platelet Volume 7.3; Platelet Count 135 k/uL (150-450); RBC 5.05 m/uL (3.80-5.40); RDW 14.9 % (11.5-15.5); WBC 6.2 k/uL (3.8-10.6)
[2020-03-18 16:11] LABS: % Iron Saturation 18.32 (12.00-45.00); African American GFR (CKD) 65.6 (60.0-200.0); Albumin 3.9 g/dL (3.80-4.90); Albumin/Globulin Ratio 1.7 (1.60-3.17); Anion Gap 7.6 mmol/L (4.00-12.00); Calcium 9.9 mg/dL (8.7-10.3); Carbon Dioxide 26.4 mmol/L (21.6-31.8); Chol/HDL Ratio 2.81; Globulin 2.3 g/dL (1.6-3.3); LDL Cholesterol,Calculated 94.4 mg/dL (0.0-131.0); Non-African American GFR(CKD) 56.6 (60.0-200.0); Potassium 4.6 mmol/L (3.5-5.5); Total Bilirubin 0.5 mg/dL (0.3-1.2); Total Protein 6.2 g/dL (6.2-8.2); VLDL Calculation 30.6 mg/dL (5.00-40.00)
== END | disposition home or self-care (01) ==
LOC: LABWHC1 08:21
PROVIDERS: ATTEND Internal Medicine Interventional Cardiology
DX: D50.9 Iron deficiency anemia, unspecified (principal)
CPT/HCPCS: 36415; 80053; 80061; 83540; 83550; 85027

== ENCOUNTER 2020-04-27 08:48 | Emergency (ER) | payer MEDICARE ==
[2020-04-27 08:58] VITALS: TEMP 97.4
[2020-04-27] MEDS ORDERED: LIDOCAINE 1%-EPI 1:100,000 20 ML VIAL SQ STA (09:05)
--- NOTE | 2020-04-27 09:16 | ED ---
Wound/Laceration HPI - General Stated Complaint: foot lac Time Seen by Provider: 04/27/20 08:54 Source: patient, RN notes reviewed Mode of arrival: ambulatory Limitations: no limitations - History of Present Illness Initial Comments: 69-year-old female presents emergency Department with chief complaint laceration to her left leg. Patient states she was taking out the trash and states that she knew she had a broken glass within the bag. Patient states that the bag was extra leg and the glass was sticking out causing a laceration. She states her was a large amount of bleeding but was somewhat controlled after putting some pressure on it. Patient states she does not take any blood thinners. Patient offers no other complaints denies any paresthesias no weakness leg. Patient states she is up-to-date on her tetanus. - Related Data Home Medications Medication Instructions Recorded Confirmed Aspirin 81 mg PO DAILY 09/15/14 12/07/16 Ferrous Sulfate [Feosol] 325 mg PO BID 09/15/14 12/07/16 Omeprazole 20 mg PO HS 09/15/14 12/07/16 Diphenoxylate HCl/Atropine 1 tab PO DAILY PRN 10/02/16 12/07/16 [Lomotil] Estradiol 0.5 mg PO QAM 10/02/16 12/07/16 Rosuvastatin Calcium [Crestor] 10 mg PO DAILY 10/02/16 12/07/16 Zolpidem Tartrate 5 mg PO HS PRN 11/29/16 12/07/16 traMADol HCL [Ultram] 100 mg PO Q6HR PRN 11/29/16 12/07/16 Metoprolol Tartrate [Lopressor] 25 mg PO BID 12/07/16 12/07/16 Previous Rx's Medication Instructions Recorded Docusate [Colace] 100 mg PO DAILY #20 capsule 12/11/16 HYDROcodone/APAP 7.5-325MG [[place] 1 each PO Q4H PRN #60 tab 12/11/16 7.5] Allergies Allergy/AdvReac Type Severity Reaction Status Date / Time No Known Allergies Allergy Verified 12/07/16 08:18 Review of Systems ROS Statement: Those systems with pertinent positive or pertinent negative responses have been documented in the HPI. ROS Other: All systems not noted in ROS Statement are negative. Past Medical History Past Medical History: Atrial Fibrillation, GERD/Reflux, Hyperlipidemia, Hypertension Additional Past Medical History / Comment(s): Diverticulitis,CHRONIC NECK PAIN, Lupus. History of Any Multi-Drug Resistant Organisms: None Reported Past Surgical History: Cholecystectomy, Heart Catheterization With Stent, Hysterectomy Additional Past Surgical History / Comment(s): RIGHT LUNG BX-NEG. Past Anesthesia/Blood Transfusion Reactions: No Reported Reaction Additional Past Anesthesia/Blood Transfusion Reaction / Comment(s): no problems with prior blood transfusion Date of Last Stent Placement:: 2008 Past Psychological History: No Psychological Hx Reported Smoking Status: Never smoker Past Alcohol Use History: Occasional Past Drug Use History: None Reported - Past Family History Father Family Medical History: Cancer, Myocardial Infarction ([place]) Additional Family Medical History / Comment(s): COLON CA Mother Family Medical History: Hypertension, Myocardial Infarction ([place]) General Exam Limitations: no limitations General appearance: alert, in no apparent distress Head exam: Present: atraumatic, normocephalic, normal inspection Eye exam: Present: normal appearance, PERRL, EOMI. Absent: scleral icterus, conjunctival injection, periorbital swelling Respiratory exam: Present: normal lung sounds bilaterally. Absent: respiratory distress, wheezes, rales, rhonchi, stridor Cardiovascular Exam: Present: regular rate, normal rhythm, normal heart sounds. Absent: systolic murmur, diastolic murmur, rubs, gallop, clicks Extremities exam: Present: other (Left lower extremity posterior aspect there is a 4 cm laceration with no pulsatile bleeding, wrap was removed and there was no significant bleeding noted pulses are equal bilaterally the lower extremity, patient has full strength and full range of motion of her left foot and ankle there is no tendon) Neurological exam: Present: reflexes normal. Absent: motor sensory deficit Skin exam: Present: warm, dry, intact, normal color. Absent: rash Course Vital Signs 04/27/20 04/27/20 08:54 09:28 Temperature 97.4 F L Pulse Rate 102 H 72 Respiratory 24 16 Rate Blood Pressure 103/72 118/68 O2 Sat by Pulse 95 94 L Oximetry Procedures - Laceration Laceration #1 Consent Obtained: verbal consent Indication: laceration Site: lower extremity (Left lower extremity posterior) Size (cm): 4 Description: linear Depth: simple, single layer Anesthetic Used: lidocaine 1%, with epi Anesthesia Technique: local infiltration Amount (mls): 8 Pre-repair: wound explored, irrigated extensively, deep structures intact Type of Sutures: nylon Size of Sutures: 4-0 Number of Sutures: 5 Technique: simple, interrupted Patient Tolerated Procedure: well, no complications Medical Decision Making - Medical Decision Making Patient had a 4 cm laceration of her left leg this was closed using sutures in no complications. Patient's full strength and full range of motion she is neurovascular intact there is no active bleeding. Patient's tetanus is up-to-date and will be discharged in stable condition. Wound care sections provided, return parameters were provided - Lab Data Lab Results 04/27/20 Range/Units 09:28 POC Glucose (mg/dL) 147 H (75-99) mg/dL POC Glu Executive Coordinator ID Brit Fernandez Disposition Clinical Impression: Laceration of left lower extremity Disposition: HOME SELF-CARE Condition: Stable Instructions (If sedation given, give patient instructions): Care For Your Stitches (ED), Laceration (ED) Additional Instructions: Have sutures removed in 14 days.Please return to the Emergency Department if symptoms worsen or any other concerns. Is patient prescribed a controlled substance at d/c from ED?: No Referrals: Dima Guzman DO [Primary Care Provider] - 1-2 days Time of Disposition: 09:16
[2020-04-27 09:29] LABS: Glucose,Whole Blood 147 mg/dL (75-99)
[2020-04-27 09:30] VITALS: BP 118/68; PULSE 72; RESP 16
== END 2020-04-27 10:00 | disposition home or self-care (01) ==
LOC: EC 08:48
DX: S81.812A Laceration without foreign body, left lower leg, initial encounter (principal); I48.91 Unspecified atrial fibrillation; K21.9 Gastro-esophageal reflux disease without esophagitis; E78.5 Hyperlipidemia, unspecified; I10 Essential (primary) hypertension; Z79.82 Long term (current) use of aspirin; Z79.899 Other long term (current) drug therapy; Z95.5 Presence of coronary angioplasty implant and graft; W25.XXXA Contact with sharp glass, initial encounter; Y93.89 Activity, other specified; Y92.009 Unspecified place in unspecified non-institutional (private) residence as the place of occurrence of the external cause
CPT/HCPCS: 12002; 36415; 99283

== ENCOUNTER → 2020-05-11 | Outpatient (CLI) | payer MEDICARE ==
[2020-05-11 20:40] LABS: Chol/HDL Ratio 2.98; LDL Cholesterol,Calculated 62.2 mg/dL (0.0-131.0); VLDL Calculation 22.8 mg/dL (5.00-40.00)
== END | disposition home or self-care (01) ==
LOC: LABWHC1 10:26
PROVIDERS: ATTEND Nurse Practitioner Adult Health
DX: E78.2 Mixed hyperlipidemia (principal)
CPT/HCPCS: 36415; 80061; 84450; 84460

== ENCOUNTER → 2020-11-05 | Outpatient (CLI) | payer MEDICARE ==
[2020-11-06 05:36] LABS: African American GFR (CKD) 65.2 (60.0-200.0); Albumin 3.8 g/dL (3.80-4.90); Albumin/Globulin Ratio 1.31 (1.60-3.17); Anion Gap 10.6 mmol/L (4.00-12.00); Calcium 9.9 mg/dL (8.7-10.3); Carbon Dioxide 19.4 mmol/L (21.6-31.8); Chol/HDL Ratio 3.51; Globulin 2.9 g/dL (1.6-3.3); LDL Cholesterol,Calculated 69.2 mg/dL (0.0-131.0); Non-African American GFR(CKD) 56.2 (60.0-200.0); Potassium 4.3 mmol/L (3.5-5.5); Total Bilirubin 0.6 mg/dL (0.2-1.2); Total Protein 6.7 g/dL (6.2-8.2); VLDL Calculation 33.8 mg/dL (5.00-40.00)
== END | disposition home or self-care (01) ==
LOC: LABWHC1 07:21
PROVIDERS: ATTEND Internal Medicine Interventional Cardiology
DX: E78.2 Mixed hyperlipidemia (principal)
CPT/HCPCS: 36415; 80053; 80061

== ENCOUNTER → 2021-04-06 | Outpatient (CLI) | payer MEDICARE ==
--- NOTE | 2021-04-07 10:42 | MM ---
Reason for exam: screening (asymptomatic). Last mammogram was performed 1 year and 2 months ago. History: Patient is postmenopausal and is nulliparous. Benign excisional biopsy, 2006. Taking estrogen beginning at age 64. Physical Findings: A clinical breast exam by your physician is recommended on an annual basis and results should be correlated with mammographic findings. MG 3D Screening Mammo W/Cad Bilateral CC, MLO, and XCCL view(s) were taken. Prior study comparison: February 19, 2020, bilateral MG 3d screening mammo w/cad. February 17, 2019, bilateral MG 3d screening mammo w/cad. The breast tissue is extremely dense which could obscure a lesion on mammography. There are benign appearing round calcifications bilaterally. There is no discrete abnormality. ASSESSMENT: Benign, BI-RAD 2 RECOMMENDATION: Routine screening mammogram of both breasts in 1 year. Some consider bilateral ultrasound surveillance in patient with extremely dense fibroglandular tissue.
== END | disposition home or self-care (01) ==
LOC: RADMAMWWP 08:42
PROVIDERS: ATTEND Family Medicine
DX: Z12.31 Encounter for screening mammogram for malignant neoplasm of breast (principal)
CPT/HCPCS: 77063; 77067

== ENCOUNTER → 2021-05-26 | Outpatient (CLI) | payer MEDICARE ==
[2021-05-26 11:54] LABS: ALT 18 U/L (8-44); AST 16 U/L (13-35); African American GFR (CKD) 84.8 (60.0-200.0); Albumin 4.1 g/dL (3.8-4.9); Albumin/Globulin Ratio 1.52 (1.60-3.17); Alkaline Phosphatase 63 U/L (41-126); Blood Urea Nitrogen 12.4 mg/dL (9.0-27.0); Calcium 9.9 mg/dL (8.7-10.3); Carbon Dioxide 19.4 mmol/L (20.0-27.5); Chloride 108 mmol/L (96-109); Chol/HDL Ratio 3.78 Ratio; Globulin 2.7 g/dL (1.6-3.3); Glucose 90 mg/dL (70-110); LDL Cholesterol,Calculated 78.5 mg/dL (0.0-131.0); Non-African American GFR(CKD) 73.1 (60.0-200.0); Potassium 4.2 mmol/L (3.5-5.5); Sodium 141 mmol/L (135-145); Total Protein 6.8 g/dL (6.2-8.2)
== END | disposition home or self-care (01) ==
LOC: LABWHC1 07:13
PROVIDERS: ATTEND Internal Medicine Interventional Cardiology
DX: E78.2 Mixed hyperlipidemia (principal)
CPT/HCPCS: 36415; 80053; 80061

== ENCOUNTER → 2021-06-01 | Outpatient (CLI) | payer MEDICARE ==
--- NOTE | 2021-06-01 16:16 | BD ---
EXAMINATION TYPE: Axial Bone Density DATE OF EXAM: 06/01/2021 COMPARISON: NONE CLINICAL HISTORY: Height: 65.5 Weight: 158.5 FRAX RISK QUESTIONS: Alcohol (3 or more units per day): no Family History (Parent hip fracture): yes Glucocorticoids (More than 3mos): no (Ex: prednisone, prednisolone, methylprednisolone, dexamethasone, and hydrocortisone). History of Fracture in Adulthood: no Secondary Osteoporosis: 1. Type 1 Diabetes: no 2. Hyperthyroidism: no 3. Menopause before 45: no 4. Malnutrition: no 5. Chronic liver disease: no Rheumatoid Arthritis: no Current Tobacco Use: no RISK FACTORS HISTORY OF: Surgery to Spine/Hip(right/left)/Wrist (right/left): no Family History of Osteoporosis: no Active: yes Diet low in dairy products/other sources of calcium: yes Postmenopausal woman: yes Lost more than 2 inches in height since high school: no MEDICATIONS: in pacs Additional History: EXAM MEASUREMENTS: Bone mineral densitometry was performed using the [employer] System. Bone mineral density as measured about the Lumbar spine is: ----- L1-L4(G/cm2): 1.052 T Score Values are as follows: ----- L2: -1.0 ----- L3: -0.9 ----- L4: -1.2 ----- L1-L4: -1.1 Bone mineral density has: increased 0.4 % since study of: 03.07.2010 Bone mineral density about the R hip (g/cm2): 0.763 Bone mineral density about the L hip (g/cm2): 0.743 T Score values are as follows: -----R Neck: -2.0 -----L Neck: -2.1 -----R Total: -.3 -----L Total: -1.3 Bone mineral density has: decreased -9.9 % since study of: 03.07.2010 IMPRESSION: Osteopenia (T Score between -2.5 and -1). There is slightly increased risk of fracture and the patient may be considered for treatment. Re-Screen 2-5 years. NOTE: T-SCORE=SD OF THE YOUNG ADULT MEAN.
== END | disposition home or self-care (01) ==
LOC: RADBDWWP 13:09
PROVIDERS: ATTEND Family Medicine
DX: M85.89 Other specified disorders of bone density and structure, multiple sites (principal); Z78.0 Asymptomatic menopausal state
CPT/HCPCS: 77080

== ENCOUNTER → 2021-12-06 | Outpatient (CLI) | payer MEDICARE ==
[2021-12-06 11:40] LABS: ALT 16 U/L (8-44); AST 20 U/L (13-35); Chol/HDL Ratio 3.59 Ratio; LDL Cholesterol,Calculated 67.8 mg/dL (0.0-131.0)
== END | disposition home or self-care (01) ==
LOC: LABWHC1 08:37
PROVIDERS: ATTEND Internal Medicine Interventional Cardiology
DX: E78.2 Mixed hyperlipidemia (principal)
CPT/HCPCS: 36415; 80061; 84450; 84460

== ENCOUNTER → 2022-04-10 | Outpatient (CLI) | payer MEDICARE ==
--- NOTE | 2022-04-11 16:24 | MM ---
Reason for Exam: Screening (asymptomatic). Last screening mammogram was performed 12 month(s) ago. Patient History: Menarche at age 12. Patient has no children. Left ovary removed at age 55. Right ovary removed at age 55. Hysterectomy at age 55. Postmenopausal. Currently using Estrogen, starting at age 64. Benign Excisional Biopsy. Risk Values: Em 5 year model risk: 2.1%. NCI Lifetime model risk: 5.2%. Prior Study Comparison: 02/17/2019 Bilateral Screening Mammogram, [facility]. 02/19/2020 Bilateral Screening Mammogram, [facility]. 04/06/2021 Bilateral Screening Mammogram, [facility]. Tissue Density: The breast tissue is extremely dense which could obscure a lesion on mammography. Findings: Analyzed By CAD. Scattered benign punctate calcifications are present. No suspicious cluster of calcifications. No significant interval change. Benign coarse calcifications are present bilaterally. No suspicious groups of microcalcifications, spiculated or lobular masses, architectural distortion or other secondary signs of malignancy are mammographically apparent. Overall Assessment: Benign, BI-RAD 2 Management: Screening Mammogram of both breasts in 1 year. A negative mammogram report should not preclude additional follow up of suspicious palpable abnormalities. Patient should continue monthly self breast exam. A clinical breast exam by your physician is recommended on an annual basis and results should be correlated with mammographic findings. Electronically signed and approved by: Ricci Taveras D.O. Radiologis
== END | disposition home or self-care (01) ==
LOC: RADMAMWWP 06:48
PROVIDERS: ATTEND Family Medicine
DX: Z12.31 Encounter for screening mammogram for malignant neoplasm of breast (principal); Z78.0 Asymptomatic menopausal state; Z98.890 Other specified postprocedural states
CPT/HCPCS: 77063; 77067

== ENCOUNTER → 2022-11-01 | Outpatient (CLI) | payer MEDICARE ==
[2022-11-01 15:22] LABS: Chol/HDL Ratio 3.29 Ratio; LDL Cholesterol,Calculated 86.8 mg/dL (0.0-131.0)
[2022-11-01 15:23] LABS: ALT 17 U/L (8-44); AST 25 U/L (13-35); African American GFR (CKD) 59.2 (60.0-200.0); Albumin 4.1 g/dL (3.8-4.9); Albumin/Globulin Ratio 1.38 (1.60-3.17); Alkaline Phosphatase 70 U/L (41-126); BUN/Creat Ratio 11.31 Ratio (12.00-20.00); Blood Urea Nitrogen 12.1 mg/dL (9.0-27.0); Calcium 9.5 mg/dL (8.7-10.3); Carbon Dioxide 21.2 mmol/L (20.0-27.5); Chloride 111 mmol/L (96-109); Glucose 89 mg/dL (70-110); Non-African American GFR(CKD) 51.1 (60.0-200.0); Potassium 4.8 mmol/L (3.5-5.5); Sodium 143 mmol/L (135-145)
== END | disposition home or self-care (01) ==
LOC: LABWHC1 09:09
PROVIDERS: ATTEND Nurse Practitioner Adult Health
DX: E78.2 Mixed hyperlipidemia (principal)
CPT/HCPCS: 36415; 80053; 80061

== ENCOUNTER → 2023-04-25 | Outpatient (CLI) | payer MEDICARE ==
[2023-04-25 17:25] LABS: Chol/HDL Ratio 3.66 Ratio; LDL Cholesterol,Calculated 105.3 mg/dL (0.0-131.0)
[2023-04-25 17:55] LABS: ALT 13 U/L (8-44); AST 25 U/L (13-35)
--- NOTE | 2023-04-27 08:57 | MM ---
Reason for Exam: Screening (asymptomatic). Last screening mammogram was performed 12 month(s) ago. Patient History: Menarche at age 12. Patient has no children. Left ovary removed at age 55. Right ovary removed at age 55. Hysterectomy at age 55. Postmenopausal. Currently using Estrogen, starting at age 64. Benign Excisional Biopsy. Risk Values: Em 5 year model risk: 2.1%. NCI Lifetime model risk: 4.9%. Prior Study Comparison: 02/19/2020 Bilateral Screening Mammogram, [facility]. 04/06/2021 Bilateral Screening Mammogram, [facility]. 04/10/2022 Bilateral MG 3D screening mammo w/cad, [facility]. Tissue Density: The breast tissue is heterogeneously dense. This may lower the sensitivity of mammography. Findings: Analyzed By CAD. There is no suspicious group of microcalcifications or new suspicious mass in either breast. Overall Assessment: Benign, BI-RAD 2 Management: Screening Mammogram of both breasts in 1 year. . Patient should continue monthly self-breast exams. A clinical breast exam by your physician is recommended on an annual basis. This exam should not preclude additional follow-up of suspicious palpable abnormalities. Note on Em scores and lifetime risk: 1. A Em score greater than 3% is considered moderate risk. If this is the case, consider specialist referral to assess eligibility for a risk reducing agent. 2. If overall lifetime risk for the development of breast cancer is 20% or higher, the patient may qualify for future screening with alternating mammogram and breast MRI. Electronically signed and approved by: Lobito He M.D. Radiologis
== END | disposition home or self-care (01) ==
LOC: RADMAMWWP 08:57
PROVIDERS: ATTEND Family Medicine
DX: Z12.31 Encounter for screening mammogram for malignant neoplasm of breast (principal); E78.2 Mixed hyperlipidemia; Z78.0 Asymptomatic menopausal state
CPT/HCPCS: 77063; 77067; 80061; 84450; 84460

== ENCOUNTER → 2023-05-22 | Outpatient (CLI) | payer MEDICARE ==
[2023-05-22 15:28] LABS: ALT 15 U/L (8-44); AST 17 U/L (13-35); Chol/HDL Ratio 2.88 Ratio; LDL Cholesterol,Calculated 60.3 mg/dL (0.0-131.0)
== END | disposition home or self-care (01) ==
LOC: LABWHC1 09:02
PROVIDERS: ATTEND Internal Medicine Interventional Cardiology
DX: E78.2 Mixed hyperlipidemia (principal)
CPT/HCPCS: 36415; 80061; 84450; 84460

== ENCOUNTER → 2024-04-09 | Outpatient (CLI) | payer MEDICARE ==
[2024-04-09 15:19] LABS: ALT 18 U/L (8-44); AST 22 U/L (13-35); Albumin 4.2 g/dL (3.8-4.9); Albumin/Globulin Ratio 1.35 Ratio (1.60-3.17); Alkaline Phosphatase 70 U/L (41-126); BUN/Creat Ratio 15.82 Ratio (12.00-20.00); Blood Urea Nitrogen 17.4 mg/dL (9.0-27.0); Calcium 9.6 mg/dL (8.7-10.3); Chloride 109 mmol/L (96-109); Chol/HDL Ratio 2.95 Ratio; Globulin 3.1 g/dL (1.6-3.3); Glucose 97 mg/dL (70-110); LDL Cholesterol,Calculated 62.3 mg/dL (0.0-131.0); Potassium 4.7 mmol/L (3.5-5.5); Sodium 142 mmol/L (135-145); Total Bilirubin 0.6 mg/dL (0.3-1.2); Total Protein 7.3 g/dL (6.2-8.2)
== END | disposition home or self-care (01) ==
LOC: LABWHC1 09:21
PROVIDERS: ATTEND Internal Medicine Interventional Cardiology
DX: E78.2 Mixed hyperlipidemia (principal)
CPT/HCPCS: 36415; 80053; 80061

== ENCOUNTER → 2024-04-28 | Outpatient (CLI) | payer MEDICARE ==
--- NOTE | 2024-04-30 14:46 | MM ---
Reason for Exam: Screening (asymptomatic). Last screening mammogram was performed 12 month(s) ago. Patient History: Menarche at age 12. Patient has no children. Left ovary removed at age 55. Right ovary removed at age 55. Hysterectomy at age 55. Postmenopausal. Currently using Estrogen, starting at age 64. Benign Excisional Biopsy. Risk Values: Em 5 year model risk: 2.1%. NCI Lifetime model risk: 4.6%. Prior Study Comparison: 04/06/2021 Bilateral Screening Mammogram, [facility]. 04/10/2022 Bilateral MG 3D screening mammo w/cad, [facility]. 04/25/2023 Bilateral MG 3D screening mammo w/cad, [facility]. Tissue Density: The breasts are heterogeneously dense, which may obscure small masses. Findings: Analyzed By CAD. Osseous obscured nodularity lateral right CC view middle to posterior depth for which further evaluation is recommended. On the left, some faint grouped calcifications outer aspect possibly near the 3:00 position may be new. Background regional diffuse punctate calcifications particularly on the left are unchanged. Overall Assessment: Incomplete: need additional imaging evaluation, BI-RAD 0 Management: Special View Mammogram of both breasts. Diagnostic Breast Ultrasound of the right breast. [facility] will attempt to contact patient to return for supplemental views and ultrasound if indicated. [facility], , 04/30/2024 2:44 PM. Electronically signed and approved by: Kelsie Zarate M.D. Radiologist
== END | disposition home or self-care (01) ==
LOC: RADMAMWWP 14:36
PROVIDERS: ATTEND Family Medicine
DX: Z12.31 Encounter for screening mammogram for malignant neoplasm of breast (principal); Z78.0 Asymptomatic menopausal state; Z90.722 Acquired absence of ovaries, bilateral; R92.333 Mammographic heterogeneous density, bilateral breasts
CPT/HCPCS: 77063; 77067

== ENCOUNTER → 2024-05-14 | Outpatient (CLI) | payer MEDICARE ==
--- NOTE | 2024-05-14 09:05 | MM ---
Reason for Exam: Clinical finding. Last screening mammogram was performed less than 1 month ago. Patient History: Menarche at age 12. Patient has no children. Left ovary removed at age 55. Right ovary removed at age 55. Hysterectomy at age 55. Postmenopausal. Currently using Estrogen, starting at age 64. Benign Excisional Biopsy. Risk Values: Em 5 year model risk: 2.1%. NCI Lifetime model risk: 4.3%. Prior Study Comparison: 04/25/2023 Bilateral MG 3D screening mammo w/cad, [facility]. 04/28/2024 Bilateral MG 3D screening mammo w/cad, [facility]. Tissue Density: The breasts are extremely dense, which lowers the sensitivity of mammography. Findings: Analyzed By CAD. Pattern is stable. Bilateral scattered calcifications are present. Within the left breast there is a cluster sand like calcifications lower outer middle breast. Stereotactic core biopsy is recommended. No suspicious persistent density in the outer right breast on ration is evident. Overall Assessment: Suspicious, BI-RAD 4 Management: Stereotactic Core Biopsy of the left breast. A negative mammogram report should not preclude additional follow up of suspicious palpable abnormalities. Patient should continue monthly self breast exam. A clinical breast exam by your physician is recommended on an annual basis and results should be correlated with mammographic findings. Note on Em scores and lifetime risk: 1. A Em score greater than 3% is considered moderate risk. If this is the case, consider specialist referral to assess eligibility for a risk reducing agent. 2. If overall lifetime risk for the development of breast cancer is 20% or higher, the patient may qualify for future screening with alternating mammogram and breast MRI. [facility], , 05/14/2024 9:02 AM. Electronically signed and approved by: Ricci Taveras D.O. Radiologis
== END | disposition home or self-care (01) ==
LOC: RADMAMWWP 08:04
PROVIDERS: ATTEND Family Medicine
DX: R92.8 Other abnormal and inconclusive findings on diagnostic imaging of breast (principal); Z90.722 Acquired absence of ovaries, bilateral; Z78.0 Asymptomatic menopausal state; R92.343 Mammographic extreme density, bilateral breasts
CPT/HCPCS: 77066; G0279; 77062

== ENCOUNTER → 2024-05-26 | Day surgery (SDC) | payer MEDICARE ==
[~2024-05-26] MED LIST changes: +ALPRAZolam 0.25 MG TAB PO PRN; -DEXAMETHASONE SOD PHOSPHATE 10 MG/ML 1 ML VIAL IV ONE; -HEPARIN SODIUM,PORCINE 5,000 UNIT/ML 1 ML VIAL SQ ONE; -HYDROmorphone 1 MG/ML 1 ML SYRINGE IVP PRN; -LACTATED RINGERS 1,000 ML IV SCH; -MIDAZOLAM 2 MG/2 ML VIAL IV PRN; -ONDANSETRON 4 MG/2 ML VIAL IVP ONE; -ceFAZolin 2 GM in SODIUM CHLORIDE 0.9% 100 ML IVPB ONE; -metroNIDAZOLE-NS PMX 500 MG in SALINE 1 100ML.BAG IVPB ONE
[2024-05-26 07:39] VITALS: PULSE 71; RESP 16
[2024-05-26 08:51] VITALS: BP 155/77; TEMP 98.3
--- NOTE | 2024-05-30 11:20 | MM ---
Risk Values: Em 5 year model risk: 2.1%. NCI Lifetime model risk: 4.3%. Prior Study Comparison: 04/25/2023 Bilateral MG 3D screening mammo w/cad, [facility]. 04/28/2024 Bilateral MG 3D screening mammo w/cad, [facility]. 05/14/2024 Bilateral MG 3D work up w/cad ANYI, [facility]. Pathology Description: Location: lower outer quadrant, middle. Marker Left Behind. Specimen Radiograph. Calcium Found: Yes Approach: CC FA Needle Type: Eviva Cores: 9 Skin Nicks: 1 Gauge: 9 The regional calcifications lateral aspect of the left breast best seen on the CC view middle depth are identified and targeted for biopsy. The procedure of stereotactic guided core biopsy was explained to the patient. Benefits, alternatives, and risks were discussed. An informed consent was then obtained. The best visualized pathway was utilized, CC from above. A vacuum assisted biopsy gun was used to obtain 8 core samples. The patient tolerated the procedure well without any immediate complication. The patient was kept in the radiology department for short stay after the procedure and then discharged home in stable condition. Targeted calcifications are identified in specimen mammogram. Patient was taken to a dedicated mammography suite for post procedure clip placement verification. Post biopsy mammogram shows the clip to appear in satisfactory position relative to the targeted area of concern on the preprocedure images. The clip is located at approximately 2 position within the left breast. IMPRESSION: SUCCESSFUL, UNCOMPLICATED STEREOTACTIC GUIDED CORE BIOPSY OF OUTER LEFT BREAST CALCIFICATIONS. Pathology Results: Result: Benign, Fibrocystic change. Pathology and radiology were reviewed. Findings are concordant. LEFT BREAST, STEREOTACTIC CORE BIOPSY: Fibrocystic change with sclerotic fibrosis, columnar cell change and microcalcification. Overall Assessment: Benign Management: Diagnostic Mammogram of the left breast in 6 months. Electronically signed and approved by: Kelsie Zarate M.D. Radiologist
== END ==
LOC: RADMAMWWP 07:02
PROVIDERS: ATTEND Surgery
DX: R92.8 Other abnormal and inconclusive findings on diagnostic imaging of breast (principal); N60.12 Diffuse cystic mastopathy of left breast
CPT/HCPCS: 88305; 19081; A4648; J2003

== ENCOUNTER → 2024-09-18 | Outpatient (CLI) | payer MEDICARE ==
[2024-09-18 15:37] LABS: ALT 19 U/L (8-44); AST 20 U/L (13-35); Albumin 3.8 g/dL (3.8-4.9); Albumin/Globulin Ratio 1.31 Ratio (1.60-3.17); Alkaline Phosphatase 74 U/L (41-126); Blood Urea Nitrogen 8.7 mg/dL (9.0-27.0); Calcium 9.1 mg/dL (8.7-10.3); Carbon Dioxide 21.1 mmol/L (21.6-31.8); Chloride 110 mmol/L (96-109); Chol/HDL Ratio 3.72 Ratio; Globulin 2.9 g/dL (1.6-3.3); Glucose 103 mg/dL (70-110); LDL Cholesterol,Calculated 95.1 mg/dL (0.0-131.0); Potassium 4.1 mmol/L (3.5-5.5); Sodium 142 mmol/L (135-145); Total Bilirubin 0.4 mg/dL (0.3-1.2); Total Protein 6.7 g/dL (6.2-8.2)
== END | disposition home or self-care (01) ==
LOC: LABWHC1 08:24
PROVIDERS: ATTEND Internal Medicine Interventional Cardiology
DX: I10 Essential (primary) hypertension (principal); E78.2 Mixed hyperlipidemia
CPT/HCPCS: 36415; 80053; 80061

== ENCOUNTER → 2024-12-11 | Outpatient (CLI) | payer MEDICARE ==
--- NOTE | 2024-12-11 08:36 | USB ---
Reason for Exam: Follow-up at short interval from prior study. Patient History: Menarche at age 12. Patient has no children. Left ovary removed at age 55. Right ovary removed at age 55. Hysterectomy at age 55. Postmenopausal. Currently using Estrogen, starting at age 64. 05/26/2024, Benign MG stereo VAD BX LT on the left side. Benign Excisional Biopsy. Risk Values: Em 5 year model risk: 2.7%. NCI Lifetime model risk: 5.4%. Technique: Method: Targeted. Prior Study Comparison: 04/25/2023 Bilateral MG 3D screening mammo w/cad, [facility]. 04/28/2024 Bilateral MG 3D screening mammo w/cad, [facility]. 05/14/2024 Bilateral MG 3D work up w/cad ANYI, [facility]. Findings: The lower outer quadrant of the left breast, the axilla of the left breast and the retroareolar of the left breast were scanned. Targeted ultrasound. No solid or cystic masses are identified. No suspicious left axillary adenopathy. Overall Assessment: Negative, BI-RAD 1 Management: Screening Mammogram of both breasts in 5 months. Return to routine follow-up. A clinical breast exam by your physician is recommended on an annual basis and results should be correlated with mammographic findings. This exam should not preclude additional follow-up of suspicious palpable abnormalities. Results were given to the patient verbally at the time of exam. [facility], , 12/11/2024 8:33 AM. Electronically signed and approved by: Anil Rivero M.D.
[2024-12-11 15:44] LABS: ALT 18 U/L (8-44); AST 20 U/L (13-35); Albumin 4.3 g/dL (3.8-4.9); Albumin/Globulin Ratio 1.72 Ratio (1.60-3.17); Alkaline Phosphatase 68 U/L (41-126); Anion Gap 12.20 mmol/L (4.00-12.00); BUN/Creat Ratio 15.80 Ratio (12.00-20.00); Blood Urea Nitrogen 15.8 mg/dL (9.0-27.0); Calcium 9.2 mg/dL (8.7-10.3); Carbon Dioxide 20.8 mmol/L (21.6-31.8); Chloride 107 mmol/L (96-109); Cholesterol 141.00 mg/dL (0.00-200.00); Globulin 2.5 g/dL (1.6-3.3); Glucose 97 mg/dL (70-110); HDL Cholesterol 50.80 mg/dL (40.00-60.00); LDL Cholesterol,Calculated 64.8 mg/dL (0.0-131.0); Potassium 4.6 mmol/L (3.5-5.5); Sodium 140 mmol/L (135-145); Total Protein 6.8 g/dL (6.2-8.2); Triglycerides 127.00 mg/dL (0.00-149.00); VLDL Calculation 25.40 mg/dL (5.00-40.00)
== END | disposition home or self-care (01) ==
LOC: RADUSWWP 07:42
PROVIDERS: ATTEND Surgery
DX: R92.8 Other abnormal and inconclusive findings on diagnostic imaging of breast (principal); I10 Essential (primary) hypertension; E78.2 Mixed hyperlipidemia; Z78.0 Asymptomatic menopausal state
CPT/HCPCS: 80053; 80061